=== PATIENT | male | born 1970 | race Hispanic/Latino ===

== ENCOUNTER 2021-05-23 16:39 | Emergency (ER) | payer SELFPAY ==
[2021-05-23] MEDS ORDERED: Ketorolac Tromethamine 30 MG/ML VIAL ONE (17:51)
== END 2021-05-23 18:50 | disposition home or self-care (01) ==
LOC: CSHERS 16:39
DX: J18.9 Pneumonia, unspecified organism (principal); Z86.16 Personal history of COVID-19; Z87.891 Personal history of nicotine dependence
CPT/HCPCS: 71045; 96372; J1885